=== PATIENT | female | born 1935 | race Caucasian/White ===

== ENCOUNTER 2017-08-10 21:15 | Inpatient (IN) | payer OTHER, MEDICARE ==
[~2017-08-10 21:15] MED LIST: ASPIRIN81 M1 PO; ATORVASTATIN CA20 MG PO; CRESTOR 10MG10 MG PO; ELIQUIS5 MG PO; ENALAPRIL MALEA10 MG PO; FISH OIL CONCEN1 SGL PO; VITAB121000 PO; VITAMIN D31000 IU PO
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
--- NOTE | 2017-08-10 22:05 | RADIOLOGY REPORT ---
EXAMINATION: XR PELVIS CLINICAL INFORMATION: 81-year-old woman with fall and pain. COMPARISON: None TECHNIQUE: AP film of the pelvis along with dedicated AP and crosstable lateral views of the left hip were obtained. FINDINGS: There is no evidence of an acute pelvic fracture. Degenerative changes are seen at the SI joints and pubic symphysis. The right hip remains in normal anatomic alignment. There is a slightly impacted subcapital fracture of the left femoral neck with slight varus angulation of the distal femur. The femoral head remains well-seated in the acetabulum. IMPRESSION: Impacted and slightly angulated subcapital fracture of the left femoral neck.
--- NOTE | 2017-08-10 22:41 | CT SCAN REPORT ---
EXAMINATION: CT HEAD WITHOUT CONTRAST CLINICAL INFORMATION: 81-year-old woman post fall on oral anticoagulation. COMPARISON: 10/05/[address] TECHNIQUE: Contiguous axial imaging was performed from the skull base to vertex without intravenous administration of contrast. DLP: 617 mGy-cm FINDINGS: Moderate chronic microvascular ischemic changes are again seen throughout the supratentorial white matter without obvious interval change. No intracranial mass, hemorrhage, midline shift, or extra-axial collection is appreciated. The ventricles and sulcal spaces are mildly prominent, but stable and probably within the range of normal for the patient's age. The paranasal sinuses are well aerated. IMPRESSION: No acute intracranial pathology.
[2017-08-10 22:55] LABS: ABSOLUTE BASOPHIL COUNT 0 /CUMM (0.0-0.2); ABSOLUTE EOSINOPHIL COUNT 0.2 /CUMM (0.0-0.7); ABSOLUTE GRANULOCYTE CT 4.8 /CUMM (1.4-6.5); ABSOLUTE LYMPH COUNT 1.9 /CUMM (1.2-3.4); ABSOLUTE MONOCYTE COUNT 0.6 /CUMM (0.10-0.60); BASOPHIL % 0.4 % (0.0-2.0); EOSINOPHIL % 2.5 % (0-5); GRANULOCYTE % 64.3 % (42.2-75.2); HEMATOCRIT 40.8 % (37-47); MEAN CORPUSCULAR HGB 30.9 PG (27.0-31.0); MEAN CORPUSCULAR HGB CONC 33.9 G/DL (33.0-37.0); MEAN CORPUSCULAR VOLUME 91.2 FL (81.0-99.0); MEAN PLATELET VOLUME 9.1 FL (7.4-10.4); PLATELET COUNT 173 /CUMM (130-400); RBC DISTRIBUTION WIDTH 13.8 % (11.5-14.5); RED BLOOD CELL CT 4.47 /CUMM (4.20-5.40); WHITE BLOOD CELL COUNT 7.5 /CUMM (4.8-10.8)
[2017-08-10 23:04] LABS: PT 13.3 SEC (9.4-12.5); PTT 29 SEC (25-37)
--- NOTE | 2017-08-10 23:09 | History & Physical ---
Moises Dooley MD,[facility] 08/10/17 7915: General Information and HPI MD Statement: I have seen and personally examined RALPH SAMUELS and documented this H&P. The patient is a 81 year old F who presented with a patient stated chief complaint of [fall]. Source of Information: patient, family Exam Limitations: no limitations History of Present Illness: Patient is 81 F with PMH of HTN, TIA (2014) on statin, afib on eliquise and amiodarone (follows Dr Chapa, s/p ablation in feb [address] Velazquez), IBS, spinal stenosis/spondylosis, endometrial cancer s/p hysterectomy, presented to the ED L side hip pain after a fall. Patient noted that this eveing she was walking in an uneven surface when she lost balance and fell on her L side, she had immediate pain in the Left hip area but tried to take few steps and had sharp pain. She denied any symptoms before the even such as SOB, chest pain, dizziness, palpitation, shakiness or incontinance. She also denied any head trauma or LOC. She also denied any weakness or change in sensation in LE, but reported limited motion of L hip due to pain. No nausea or vomiting, no change in vision. She denied any change in PO intake. Patient was diagnosed to have afib, was taking amiodarone and eliquise and underwent ablation by Dr Velazquez, she noted that she had an appointment with Dr Velazquez tomorrow regarding possible planning to discharge the amiodarone. She also reported 2 episodes of bactruria/UTI last month, first was revealed after she visited Dr Marshall for stress incontinance, she was prescribed NF, but continued to have disuria, she contacted her PCP and was adminsitered Bactrim for 3 days, the last dose to be finished tonight. Patient lives with , independant in acitivies of daily life, denied smoking or using drugs and reported occasional alcohol intake. Allergies/Medications Allergies: Coded Allergies: NO KNOWN ALLERGIES (04/22/14) Home Med list Amiodarone (Cordarone) 200 MG TAB 100 TAB PO EOD AFIB (Reported) Amiodarone HCl 200 MG TABLET 200 TAB PO EOD AFIB (Reported) Apixaban (Eliquis) 5 MG TABLET 1 TAB PO BID AFIB (Reported) Enalapril Maleate 10 MG TABLET 1 TAB PO BID HTN (Reported) Estradiol (Estrace) 0.01 % CREAM.APPL 1 GM VG QW MENOPSUSE (Reported) Pravastatin Sodium 20 MG TABLET 1 TAB PO Tuesday HLD (Reported) Sulfamethoxazole/Trimethoprim (Sulfamethoxazole-Tmp Ds Tablet) 800 MG-160 MG TABLET 1 TAB PO BID UTI (Reported) Past History Travel History Traveled to [place] past 21 day No Medical History Neurological: migraine, TIA EENT: sinusitis Cardiovascular: hypertension, "IRREGULAR HEART BEAT" Respiratory: NONE Gastrointestinal: irritable bowel syndrome Hepatic: NONE Renal: NONE Musculoskeletal: osteoarthritis Psychiatric: NONE Endocrine: NONE Blood Disorders: NONE Cancer(s): SKIN CANCER 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 Exam & Diagnostic Data Last 24 Hrs of Vital Signs/I&O Vital Signs Date Time Temp Pulse Resp B/P B/P Pulse O2 O2 Flow FiO2 Mean Ox Delivery Rate 08/10 2120 98.0 64 16 154/80 98 Room Air Physical Exam General Appearance Alert, Oriented X3, Cooperative, No Acute Distress Skin No Significant Lesion, skin abrasion throughout the body Skin Temp/Moisture Exam: Warm/Dry Sepsis Skin Exam (color): Normal for Ethnicity HEENT Atraumatic, EOMI, pupils reactive mocus dry relatively Neck Supple, No JVD Cardiovascular Regular Rate, Normal S1, Normal S2 Lungs Clear to Auscultation, Normal Air Movement Abdomen Soft, No Tenderness Neurological Normal Speech, Strength at 5/5 X4 Ext, Cranial Nerves 3-12 NL, motion of L hip limited due to pain Extremities No Edema Vascular pulses present Last 24 Hrs of Labs/Larry: Laboratory Tests 08/10/17 2248: Anion Gap 13, Estimated GFR 29 L, BUN/Creatinine Ratio 15.3, Glucose 153 H, Calcium 8.9, Total Bilirubin 0.5, AST 25, ALT 23, Alkaline Phosphatase 63, Troponin I < 0.01, Total Protein 7.3, Albumin 4.3, Globulin 3.0, Albumin/ Globulin Ratio 1.4, PT 13.3 H, INR 1.22 H, APTT 29, CBC w Diff NO MAN DIFF REQ , RBC 4.47, MCV 91.2, MCH 30.9, MCHC 33.9, RDW 13.8, MPV 9.1, Gran % 64.3, Lymphocytes % 25.3, Monocytes % 7.5, Eosinophils % 2.5, Basophils % 0.4, Absolute Granulocytes 4.8, Absolute Lymphocytes 1.9, Absolute Monocytes 0.6, Absolute Eosinophils 0.2, Absolute Basophils 0 Microbiology 08/11 0058 URINE ROUT: Urine Culture - ORD Assessment/Plan Assessment: Patient is 81 F presented to the ED L side hip pain after a fall. most likely mechanical fall PMH: HTN, TIA (2014) on statin, afib on eliquise and amiodarone (follows Dr Chapa, s/p ablation in feb [address] Velazquez), IBS, spinal stenosis/ spondylosis, endometrial cancer s/p hysterectomy, VS, Ph Ex at admission: BP 154/80, RR 64, no fever EKG: NSR Labs at admission: CBC insignificant, Hgb 13.8 BEP Cr 1.3, BUN 19 INR 1.2 UA: pending Imagings at admission: head CT: no acute intracranial pathology Hip/pelvic xray: Impacted and slightly angulated subcapital fracture of the left femoral neck. Patient was admitted to telemetry floor for management of following conditions: Left femoral neck fracture Chronic medical conditions, afib on eliquise SOREN UTI - admit to tele floor - vital signs - gentle hydration - pain control, tynelol, morphin (No Nsaid) - not candidate for surgery tomorrow due to eliquise (need to hold for 2 days) - cardiology consult, Dr chapa - contiue home medications except hold eliquise for now, hold JAMARCUS for SOREN - Ortho consult - PT/OT - complete last dose of bactrim DVT ppx: ALPS, hold eliquise anticipation for surgery heart healthy diet FC As Ranked By This Provider Problem List: 1. Femur fracture, left Core Measures/Misc (11/21) Acute Coronary Syndrome ACS Diagnosis: No Congestive Heart Failure Congestive Heart Failure Diagnosis No Cerebrovascular Accident CVA/TIA Diagnosis: No VTE (View Protocol) VTE Risk Factors Age>40 No Mechanical VTE Prophylaxis d/t N/A MechProphylax Ordered No VTE Pharm Prophylaxis d/t Medical Contraindication (Eliquise held for surgery ) Sepsis (View protocol) Sepsis Present: No If YES complete Sepsis Event Note If YES complete Sepsis Event Note Argelia Jimenez 08/10/17 2337: Core Measures/Misc (11/21) Sepsis (View protocol) If YES complete Sepsis Event Note If YES complete Sepsis Event Note Resident Review Statement Resident Statement: examined this patient, discussed with development intern, agreed with development intern Other Findings: Mrs Samuels is a 81-year-old female with past medical history of hypertension, TIA in 2015 on aspirin and statin, atrial fibrillation on Eliquis, inflammatory bowel syndrome, spinal stenosis/spondylolysis, endometrial cancer status post hysterectomy presented to the emergency department after fall on the left side and left hip pain after the fall. Apparently she had a fall in the driveway and hurt her left side. On presentation her temperature was 98.0, pulse of 64, respiration of 16, blood pressure 154/80, she was saturating 98% on room air. White count of 7.5, H/H of 13.8/40.8, platelet of 170 X-ray hip showed impacted and slightly angulated capital fracture of left femoral neck. CT head did not show any acute intracranial pathology. EKG: showed normal sinus rhythm with poor T-wave progression, Qtc 451. Echo in 2014 - showed EF of 55-60%. Physical exam : She was alert oriented to time place and person, left lower extremity slightly shorter than the right extremity, could wiggle toes of both foot, limited mobility of the left leg especially above knee, CVS S1-S2 present no murmur, RS and entry bilaterally equal, no adventitious sounds, PA : soft, nontender, lower extremity no edema clubbing or cyanosis, pulses palpable bilaterally, slight bruising on the left elbow and mild bruising in the left ankle. Problem list along with assessment and plan. Problem #1 left femoral neck angulated capital fracture. * Patient will perhaps need repair of the left femoral neck fracture. * Orthopedic consult, type and crossmatch, continue to monitor CBCs, BEP, PT, INR. * Please hold Eliquis, last dose of Eliquis was on the morning of 08/11/2017, touch based with surgical PA, need at least 48 hours of holding of Eliquis therefore not anticipating surgery on the a.m. of 08/11/[address] regular diet. * Continue pain management with IV Tylenol, tramadol for moderate pain and IV morphine for severe pain * PT/OT consult. * Patient will need clearance for surgery. * Cardiology consult with Dr Chapa in a.m. in order to obtain clearance. * Risk stratification for Hip Sx : RCRI Score of 1 : Patient does not have any history of ischemic heart disease, congestive heart failure or diabetes, however she does have a history of TIA, she does have mildly elevated creatinine to 1.7 however not greater than 2 mg per DL, therefore 0.9% risk of cardiac , nonfatal IN and nonfatal cardiac arrest. * Further management per orthopedic. #2 history of atrial fibrillation on Eliquis. * Patient was found to have paroxysmal atrial fibrillation, this is when her electronic warfare operator Dr. Velazquez suggested a Holter monitor after which she was found to have atrial fibrillation now status post ablation. * Currently she is in normal sinus rhythm. * We will hold Eliquis in anticipation of hip surgery. * Continue to monitor on cardiac telemetry. * Continue rate control with amiodarone, she alternatively takes 200 and 100 mg of amiodarone. #3 History of hyperlipidemia. * Patient takes pravastatin 20 mg daily. * We will hold the statin for now. #4. CKD Stage 3 with Acute kidney injury. * Current creatinine of 1.7, baseline creatinine was found to be between 1.1 and 1.5 since 2017, she does look dry on physical exam, she was also noted to have a decent urinary tract infection for which she was being treated with Bactrim. * we will hold lisinopril * Continue gentle IV hydration. * Continue to monitor creatinine. * Avoid all nephrotoxic medications. We will hold lisinopril for now. #5 History of recent urinary tract infection. * Patient had recent complain of burning and dysuria as OP after which she went to her PCP. * Urine was found to be positive for infection ,therefore was being treated with Bactrim, she has completed 2 days with 1 more dose remaining. * We will check UA and urine culture, can consider giving 1 more dose of p.o. Bactrim to complete the entire course. * UA clear - no infection. Patient is full code. DVT prophylaxis with ALPS Pain management with IV morphine, tramadol and IV Tylenol. Regular diet. Grzegorz YI, [facility] 08/11/17 0224: Core Measures/Misc (11/21) Sepsis (View protocol) If YES complete Sepsis Event Note If YES complete Sepsis Event Note Attending MD Review Statement Attending Statement Attending MD Statement: examined this patient, discuss w/resident/PA/SPRAYER MACHINE, agreed w/resident/PA/SPRAYER MACHINE, discussed with family, reviewed images, amended to note Attending Assessment/Plan: 81 yo F with h/o TIA (2014), paroxysmal Afib s/p ablation on Eliquis, HTN, CKD stage 3, endometrial cancer s/p SHUN, UTI currently on Bactrim, is brought in status post mechanical fall at home. She denies any prodromal symptoms of lightheadedness, palpitations, chest pain, or dyspnea. No head strike or LOC. She reports left hip pain. Her last dose of eliquis was on 08/10/17 at 9 am. Please note, patient had a LINQ monitor placed in 2014 when she had the TIA, which was able to identify paroxysmal Afib. She was placed on eliquis and amiodarone, recently underwent ablation at [facility] (Feb 2017) by Dr. Velazquez. She denies any h/o CAD, CHF, diabetes. She does have CKD but baseline creatinine is not > 2.0. Vitals stable. Exam: AAO, in no distress, Neck supple, dry mucosa, Chest clear, Heart S1S2 regular, Abd soft, NT, Left hip: no ecchymosis or swelling. Left leg shortened. Peripheral pulses well felt. Labs: CBC nomal, INR 1.22, BUN 26, Creat 1.7 (baseline 1.0-1.2), glucose 153, trop neg. UA clear. CXR: no acute findings. CT head: moderate chronic microvascular ischemic changes, no acute pathology. Left hip/pelvis Xray: impacted and slightly angulated subcapital fracture of the left femoral neck. EKG: sinus rhythm, poor T-wave progression, Qtc 451. Echo (2014): EEF 55-60%, mild to moderate aortic sclerosis. Assessment and plan: 1. Mechanical fall 2. Left femoral neck fracture 3. Paroxysmal Afib on Eliquis 4. History of TIA 5. Essential hypertension 6. SOREN on CKD stage 3 - Admit to Telemetry - Given her h/o Afib, it is prudent to monitor on the Tele floor for about 24 hours post-operatively - Fall precautions - Repeat EKG and troponin in AM - Obtain post-op EKG - Ortho consult - Hold eliquis for 48 hours prior to procedure - Resume amiodarone and pravastatin - Regular diet for now - Pain management with IV tylenol, tramadol and IV morphine as needed - Avoid NSAIDs - Neurovascular checks - Per RCRI, she had 1 risk factor, placing her at Class II risk for perioperative cardiac event - Obtain Cardiology clearance with Dr. Chapa - Ascertain need for repeat Echo per Cardio - Type and crossmatch - IV hydration - Follow renal functions - Hold enalapril for SOREN, resume once renal functions improve - Complete course of Bactrim for UTI while monitoring renal fns - Place Barrett catheter - Eventual PT and STR DVT ppx Alps. Full code.
[2017-08-10] MEDS ORDERED: ESTRACE42.5 GM VG (23:16)
[2017-08-10] MEDS ORDERED: ELIQUIS5 M1 PO (23:16)
[2017-08-10] MEDS ORDERED: ENALAPRIL MALEA10 M1 PO (23:17)
[2017-08-10] MEDS ORDERED: SULFAMETHOXAZO1 EAC1 PO (23:17)
[2017-08-10] MEDS ORDERED: AMIODARONE HCL200 M2 PO (23:19)
[2017-08-10] MEDS ORDERED: AMIODARONE HCL200 M1 PO (23:20)
[2017-08-10] MEDS ORDERED: PRAVASTATIN SOD20 M2 PO (23:21)
--- NOTE | 2017-08-11 01:22 | Cons- Orthopedic ---
Abbi Sue 08/11/17 0115: General Information and HPI Consulting Request Date of Consult: 08/11/17 Requested By: Braden Lantigua MD Reason for Consult: L hip fx sp mechanical fall History of Present Illness: 81F presents to ED for l hip pain s/p mechanical fall at home in her garden. Denies hitting her head, no LOC, no dizziness, no palpitations, no cp, no sob now or at time of fall. Admits to some pain L hip, though no paresthesias. Was supposed to finsih course of BActrim ast night for UTI, and still feels symptomatic (pain w insertion of mercado). No other complaints at this time. Fully independent in ADLs, drives and lives w spouse. PMHx includes AFib on eliquis sp ablation 02/2017, HTN, endometrial ca sp SHUN 2014. Last dose of eliquis 08/10/17 am. Allergies/Medications Allergies: Coded Allergies: NO KNOWN ALLERGIES (04/22/14) Home Med List: Amiodarone (Cordarone) 200 MG TAB 100 TAB PO EOD AFIB (Reported) Amiodarone HCl 200 MG TABLET 200 TAB PO EOD AFIB (Reported) Apixaban (Eliquis) 5 MG TABLET 1 TAB PO BID AFIB (Reported) Enalapril Maleate 10 MG TABLET 1 TAB PO BID HTN (Reported) Estradiol (Estrace) 0.01 % CREAM.APPL 1 GM VG QW MENOPSUSE (Reported) Pravastatin Sodium 20 MG TABLET 1 TAB PO Tuesday HLD (Reported) Sulfamethoxazole/Trimethoprim (Sulfamethoxazole-Tmp Ds Tablet) 800 MG-160 MG TABLET 1 TAB PO BID UTI (Reported) Past History Medical History Neurological: migraine, TIA EENT: sinusitis Cardiovascular: AFIB (sp ablation 02/2017), hypertension Respiratory: NONE Gastrointestinal: irritable bowel syndrome Hepatic: NONE Renal: NONE Musculoskeletal: osteoarthritis Psychiatric: NONE Endocrine: NONE Blood Disorders: NONE Cancer(s): SKIN [employer]OR/Reproductive: Endometrial CA S/P SHUN 2014 Surgical History Pertinent Surgical History: hysterectomy, heart ablation Psychosocial History Where Do You Live? Home Who Do You Live With? spouse Services at Home: None Smoking Status: Never Smoked ETOH Use: denies use Illicit Drug Use: denies illicit drug use Exam & Diagnostic Data Vital Signs and I&O Vital Signs Date Time Temp Pulse Resp B/P B/P Pulse O2 O2 Flow FiO2 Mean Ox Delivery Rate 08/10 2120 98.0 64 16 154/80 98 Room Air Intake & Output 08/11 0000 08/10 1600 08/10 0808/10 0000 08/09 1600 Intake Total Output Total Balance Patient 153 lb Weight Physical Exam: gen- nad card- s1s2 rrr pulm-ctab ext- LLE shortened, gross sensation intact, +dp, gross motor intact, left hipnt, skin closed, no ecchymoses Last 24 Hours of Labs: Laboratory Tests 08/10 2248 Chemistry Sodium (137 - 145 mmol/L) 142 Potassium (3.5 - 5.1 mmol/L) 4.5 Chloride (98 - 107 mmol/L) 104 Carbon Dioxide (22 - 30 mmol/L) 25 Anion Gap (5 - 16) 13 BUN (7 - 17 mg/dL) 26 H Creatinine (0.5 - 1.0 mg/dL) 1.7 H Estimated GFR (>60 ml/min) 29 L BUN/Creatinine Ratio (7 - 25 %) 15.3 Glucose (65 - 99 mg/dL) 153 H Calcium (8.4 - 10.2 mg/dL) 8.9 Total Bilirubin (0.2 - 1.3 mg/dL) 0.5 AST (14 - 36 U/L) 25 ALT (9 - 52 U/L) 23 Alkaline Phosphatase (<127 U/L) 63 Troponin I (< 0.11 ng/ml) < 0.01 Total Protein (6.3 - 8.2 g/dL) 7.3 Albumin (3.5 - 5.0 g/dL) 4.3 Globulin (1.9 - 4.2 gm/dL) 3.0 Albumin/Globulin Ratio (1.1 - 2.2 %) 1.4 Coagulation PT (9.4 - 12.5 SEC) 13.3 H INR (0.90 - 1.19) 1.22 H APTT (25 - 37 SEC) 29 Hematology CBC w Diff NO MAN DIFF REQ WBC (4.8 - 10.8 /CUMM) 7.5 RBC (4.20 - 5.40 /CUMM) 4.47 Hgb (12.0 - 16.0 G/DL) 13.8 Hct (37 - 47 %) 40.8 MCV (81.0 - 99.0 FL) 91.2 MCH (27.0 - 31.0 PG) 30.9 MCHC (33.0 - 37.0 G/DL) 33.9 RDW (11.5 - 14.5 %) 13.8 Plt Count (130 - 400 /CUMM) 173 MPV (7.4 - 10.4 FL) 9.1 Gran % (42.2 - 75.2 %) 64.3 Lymphocytes % (20.5 - 51.1 %) 25.3 Monocytes % (1.7 - 9.3 %) 7.5 Eosinophils % (0 - 5 %) 2.5 Basophils % (0.0 - 2.0 %) 0.4 Absolute Granulocytes (1.4 - 6.5 /CUMM) 4.8 Absolute Lymphocytes (1.2 - 3.4 /CUMM) 1.9 Absolute Monocytes (0.10 - 0.60 /CUMM) 0.6 Absolute Eosinophils (0.0 - 0.7 /CUMM) 0.2 Absolute Basophils (0.0 - 0.2 /CUMM) 0 Imaging Results: SERVICE DATE: 08/10/17 EXAM TYPE: RAD - XRY-AP PELVIS; XRY-HIP 2-3 VIEWS, LEFT EXAMINATION: XR PELVIS CLINICAL INFORMATION: 81-year-old woman with fall and pain. COMPARISON: None TECHNIQUE: AP film of the pelvis along with dedicated AP and crosstable lateral views of the left hip were obtained. FINDINGS: There is no evidence of an acute pelvic fracture. Degenerative changes are seen at the SI joints and pubic symphysis. The right hip remains in normal anatomic alignment. There is a slightly impacted subcapital fracture of the left femoral neck with slight varus angulation of the distal femur. The femoral head remains well-seated in the acetabulum. IMPRESSION: Impacted and slightly angulated subcapital fracture of the left femoral neck. CT Head- negative for acute pathology. see rads report for details Assessment/Plan Assessment/Plan A- 81yoF with left femoral neck fracture sp fall at home, on home eliquis for afib- last dose <24hr ago, otherwise stable. P- hold eliquis prn pain meds OR when medically optimized/cleared. Will need to be at least 48hr after last dose of eliquis. alma Kimball Consult Acknowledgment - Thank you for your consult request. Rehana YIJosé Manuel 08/11/17 0735: Assessment/Plan Consult Acknowledgment - Thank you for your consult request. Attending MD Review Statement Attending Statement Attending Assessment/Plan: Left hip femoral neck fracture. Plan for left hip percutaneous pinning this afternoon. Please keep NPO. Hold anticoagulation, the patient did not have her evening dose of eliquis, percutaneous pinning has a low bleelding risk.
--- NOTE | 2017-08-11 01:25 | Admission Certification ---
Admission Certification Certification Statement - As attending physician, I certify that at the time of - admission, based on clinical presentation, severity of - symptoms, need for further diagnostic testing and - therapeutic interventions, and risk of adverse outcomes - without in-hospital treatment, in my clinical assessment, - this patient requires an acute hospital stay for a minimum - of two nights or longer. I have also considered psychsocial - factors such as support system, advanced age, financial - issues, cognitive issues, and failed out-patient treatments, - past re-admission history, safety of patient, and lack of - compliance as applicable. Specific rationale supporting this admission is: Mechanical fall, subcapital fracture of left femoral neck.
--- NOTE | 2017-08-11 01:53 | RADIOLOGY REPORT ---
EXAMINATION: XR PORTABLE CHEST CLINICAL INFORMATION: Preoperative, rule out pneumonia, effusion COMPARISON: 02/08/2017 TECHNIQUE: Portable frontal view of the chest was obtained. FINDINGS: Implantable quality assurance monitor overlies the lower left chest. There is mild elevation of the right hemidiaphragm. No focal consolidation is seen bilaterally. No evidence of pneumothorax, pleural effusion, or pulmonary edema. Cardiac size is within normal limits. Calcification is present at the aortic arch. Degenerative changes are noted in the spine. IMPRESSION: No acute cardiopulmonary findings.
[2017-08-11 05:30] LABS: ABSOLUTE BASOPHIL COUNT 0 /CUMM (0.0-0.2); ABSOLUTE EOSINOPHIL COUNT 0.1 /CUMM (0.0-0.7); ABSOLUTE GRANULOCYTE CT 7.6 /CUMM (1.4-6.5); ABSOLUTE MONOCYTE COUNT 0.6 /CUMM (0.10-0.60); BASOPHIL % 0.3 % (0.0-2.0); EOSINOPHIL % 0.6 % (0-5); GRANULOCYTE % 81.6 % (42.2-75.2); HEMATOCRIT 37.8 % (37-47); MEAN CORPUSCULAR HGB 30.8 PG (27.0-31.0); MEAN CORPUSCULAR VOLUME 90.6 FL (81.0-99.0); MEAN PLATELET VOLUME 8.9 FL (7.4-10.4); PLATELET COUNT 152 /CUMM (130-400); RBC DISTRIBUTION WIDTH 14.2 % (11.5-14.5); RED BLOOD CELL CT 4.17 /CUMM (4.20-5.40); WHITE BLOOD CELL COUNT 9.3 /CUMM (4.8-10.8)
--- NOTE | 2017-08-11 07:03 | PN- Orthopedic ---
Subjective Subjective: left hip fracture s/p mechanical fall on medical service awaiting cardiac clearance Objective Vital Signs and I&Os Vital Signs Date Time Temp Pulse Resp B/P B/P Pulse O2 O2 Flow FiO2 Mean Ox Delivery Rate 08/11 0518 96.7 61 16 126/59 95 Room Air 08/11 0121 98.7 72 16 130/60 96 Room Air 08/10 2120 98.0 64 16 154/80 98 Room Air Intake & Output 08/11 0800 08/11 0000 08/10 1600 08/10 0800 08/10 0000 08/09 1600 Intake Total Output Total Balance Patient 153 lb Weight Physical Exam: awake alert vss left hip fracture requiring orif for ambulation Assessment/Plan Assessment/Plan left hip fracture afib- currently taking eliquis plan Dr Kimball would liketo take patient to OR this afternoon please keep npo for now aware that patient is on eliquis surgery will require percutaneous pinning which is a smaller incision( no need for 48 hr hold for anticoagulation Core Measures Venous Thromboembolism VTE Risk Factors Age>40 No Mechanical VTE Prophylaxis d/t N/A MechProphylax Ordered No VTE Pharm Prophylaxis d/t Medical Contraindication (Eliquise held for surgery )
--- NOTE | 2017-08-11 07:16 | PN- Housestaff ---
Nelida YI,Anamika 08/11/17 0716: Subjective Follow-up For: left femoral neck angulated capital fracture S/P percutaneous pinning history of atrial fibrillation on Eliquis. SOREN on CKD stage III Tele-Events Since Last Visit: No overnight events Subjective: Patient was seen and examined at bedside, had few questions regarding her surgery, concern about when she would be able to get back to her usual daily activities. She had mild hyperkalemia this morning, was given 500 normal saline cc bolus. Patient was taken for percutaneous pinning of her femoral neck fracture this morning Review of Systems Constitutional: Reports: see HPI. Cardiovascular: Denies: no symptoms. Respiratory: Denies: no symptoms. Gastrointestinal: Denies: no symptoms. Genitourinary: Denies: no symptoms. Musculoskeletal: Reports: joint pain. Objective Last 24 Hrs of Vital Signs/I&O Vital Signs Date Time Temp Pulse Resp B/P B/P Pulse O2 O2 Flow FiO2 Mean Ox Delivery Rate 08/11 0925 98.0 83 18 136/80 98 Room Air Room Air / 0841 98.1 58 18 114/56 06/07 0739 98.1 58 18 114/56 97 Room Air Room Air 06/07 0518 96.7 61 16 126/59 95 Room Air / 0121 98.7 72 16 130/60 96 Room Air 06/06 2120 98.0 64 16 154/80 98 Room Air Intake & Output /07 1600 06/07 0800 06/07 0000 Intake Total 500 Output Total Balance 500 Intake, IV 500 Patient 153 lb Weight Physical Exam General Appearance: Alert, Oriented X3 HEENT: Atraumatic, PERRLA, EOMI, Mucous Membr. moist/pink Cardiovascular: Normal S1, Normal S2 Lungs: Clear to Auscultation Abdomen: Normal Bowel Sounds, Soft Neurological: Normal Speech Extremities: No Clubbing, No Cyanosis, No Edema, NEUROVASCULAR INTACT IN BOTH LE , PULSES INTACT Vascular: Normal Pulses Assessment/Plan Assessment: 81-year-old female with past medical history of hypertension, TIA in 2015 on aspirin and statin, atrial fibrillation on Eliquis, inflammatory bowel syndrome, spinal stenosis/spondylolysis, endometrial cancer status post hysterectomy presented to the emergency department after fall on the left side and left hip pain after the fall. Apparently she had a fall in the driveway and hurt her left side. Patient had RC RI score of 1 due to history of TIA which make her has 0.9% risk of cardiac unknown fatal cardiac arrest, she was cleared by cardiology for the surgery. 1. Mechanical fall 2. Left femoral neck fracture S/P percutanous pinning 3. Paroxysmal Afib on Eliquis 4. History of TIA 5. Essential hypertension 6. SOREN on CKD stage 3 7/. Mild hyperkalemia plan: Continue to monitor on telemetry at least for 24 hours postoperative Fall precautions Tropes and EKG ruled out ACS Will restart oral anticoagulation as soon as possible when approved by surgery Avoid nephrotoxic, continue to hold lisinopril Gentle IV fluid hydration Recheck BUN, creatinine and electrolytes Follow-up on cardiology and orthopedic recommendation PT evaluation appreciated Continue amiodarone and pravastatin Pain management with IV Tylenol, tramadol, morphine as needed Close monitoring of renal function Patient is full code. DVT prophylaxis with ALPS Pain management with IV morphine, tramadol and IV Tylenol. Regular diet. Problem List: 1. Femur fracture, left 2. HTN (hypertension) 3. TIA (transient ischemic attack) 4. SOREN (acute kidney injury) Pain Ratin Pain Location: left hip Pain Goal: Remain pain free Pain Plan: Pathway Tomorrow's Labs & Rationales: cbc bep DreaCindi 08/11/17 1028: Attending MD Review Statement Attending Statement Attending MD Statement: examined this patient, discuss w/resident/PA/HVAC R TECH, agreed w/resident/PA/HVAC R TECH, discussed with family, reviewed EMR data (avail), discussed with nursing, discussed with case mgmt, reviewed images, amended to note Attending Assessment/Plan: Patient with hip fratcure and planned repair to OR. Patient is low risk for surgery. Patient can be taken to OR today, Resume anticoagulation as per orthopedics/cardiology.
--- NOTE | 2017-08-11 09:52 | Cons- Cardiology ---
General Information and HPI Consulting Request Date of Consult: 08/11/17 Requested By: Cindi Shepard MD Reason for Consult: Preoperative clearance Source of Information: patient, family, old records Exam Limitations: no limitations History of Present Illness: The patient is an 81 year old female with a history of HTN, TIA (2014) on statin, afib on eliquis and amiodarone (follows Dr Delgado, s/p ablation in feb [address] Velazquez), IBS, spinal stenosis/spondylosis, endometrial cancer s/p hysterectomy, presented to the ED L side hip pain after a fall. The patient noted that, on the evening of admission, she tripped on an uneven surface when she lost balance and fell on her L side, she had immediate pain in the Left hip area but tried to take few steps and had sharp pain. She denied any symptoms before the even such as SOB, chest pain, dizziness, palpitation, shakiness or incontinance. She also denied any head trauma or LOC. She also denied any weakness or change in sensation in LE, but reported limited motion of L hip due to pain. No nausea or vomiting, no change in vision. She denied any change in PO intake. From a cardiac standpoint, she has been totally stable with no symptoms. She has noted some recent gait instability whcih she attributes to her amiodarone. Allergies/Medications Allergies: Coded Allergies: NO KNOWN ALLERGIES (04/22/14) Home Med List: Acetaminophen (Tylenol Extra Strength) 500 MG TABLET 1 TAB PO TID PRN hip pain Amiodarone (Cordarone) 200 MG TAB 100 TAB PO EOD AFIB (Reported) Amiodarone HCl 200 MG TABLET 200 TAB PO EOD AFIB (Reported) Apixaban (Eliquis) 5 MG TABLET 1 TAB PO BID AFIB (Reported) Enalapril Maleate 10 MG TABLET 1 TAB PO BID HTN (Reported) Estradiol (Estrace) 0.01 % CREAM.APPL 1 GM VG QW MENOPSUSE (Reported) Polyethylene Glycol 3350 (Miralax) 17 GRAM/DOSE POWDER 17 GM PO DAILY PRN constipation . Pravastatin Sodium 20 MG TABLET 1 TAB PO Tuesday HLD (Reported) Sulfamethoxazole/Trimethoprim (Sulfamethoxazole-Tmp Ds Tablet) 800 MG-160 MG TABLET 1 TAB PO BID UTI (Reported) Current Medications: Current Medications Sig/Honey Start time Last Medication Dose Route Stop Time Status Admin Acetaminophen 1,000 MG Q6P PRN 08/11 0100 AC N/A 1 UNIT IV Amiodarone HCl 100 MG Q48 08/12 899 AC PO Amiodarone HCl 200 MG Q48 08/11 0900 AC / PO 0841 Amiodarone HCl 20,000 MG .[EOD] 08/11 010 DC PO Amiodarone HCl 40,000 MG .[EOD] 08/11 010 DC PO Dextrose/Sodium 1,000 ML Q20H 08/12 799 AC 08/11 Chloride IV 08/12 0359 0841 Morphine Sulfate 2 MG Q4P PRN 08/11 08 AC IV Morphine Sulfate 0 .STK-MED ONE 08/11 0128 DC .ROUTE Morphine Sulfate 2 MG Q4P PRN 08/11 0100 DC 08/11 IV 0115 Ondansetron HCl 4 MG ONCE ONE 08/11 0145 DC / IV 08/11 0146 0147 Ondansetron HCl 0 .STK-MED ONE 08/11 0132 DC .ROUTE Pravastatin Sodium 20 MG 08/12 09 AC PO Sodium Chloride 500 ML BOLUS ONE 08/11 929 AC / IV 08/11 1029 0929 Sodium Polystyrene 60 ML ONCE ONE 08/12 799 DC Sulfonate RI 08/11 08 Tramadol HCl 50 MG Q6 PRN 08/11 0100 AC PO Past History Travel History Traveled to [place] past 21 day No Medical History Neurological: migraine, TIA EENT: sinusitis Cardiovascular: AFIB (sp ablation 02/2017), hypertension Respiratory: NONE Gastrointestinal: irritable bowel syndrome Hepatic: NONE Renal: NONE Musculoskeletal: osteoarthritis Psychiatric: NONE Endocrine: NONE Blood Disorders: NONE Cancer(s): SKIN [employer] HEALTHC[employer] 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 Home Who Do You Live With? spouse Services at Home: None Smoking Status: Never Smoked ETOH Use: denies use Illicit Drug Use: denies illicit drug use Exam & Diagnostic Data Vital Signs and I&O Vital Signs Date Time Temp Pulse Resp B/P B/P Pulse O2 O2 Flow FiO2 Mean Ox Delivery Rate 08/11 924 98.0 83 18 136/80 98 Room Air Room Air 06/07 0841 98.1 58 18 114/56 08/11 0739 98.1 58 18 114/56 97 Room Air Room Air 08/11 0518 96.7 61 16 126/59 95 Room Air 08/11 0121 98.7 72 16 130/60 96 Room Air 08/10 2120 98.0 64 16 154/80 98 Room Air Intake & Output 08/11 1600 08/11 0800 08/11 0000 08/10 1600 08/10 0800 08/10 0000 Intake Total 500 Output Total Balance 500 Intake, IV 500 Patient 153 lb Weight Physical Exam: General Appearance: well developed/nourished, alert, awake, oriented Head: normal HEENT: Normal Neck: supple, JVP normal, carotid upstrokes normal bilaterally, no masses or thyromegaly Respiratory: chest non-tender, clear to auscultation and percussion bilaterally Cardiovascular: regular rate/rhythm, normal S1, S2, 1/6 systolic murmur Abdomen: normal bowel sounds, soft, non-tender Extremities: normal inspection, no edema Vascular: Pulses are 2+ and equal bilaterally Neurologic: Grossly normal/nonfocal Labs/Larry Results: Laboratory Tests 08/11 08/11 0515 0500 Chemistry Sodium (137 - 145 mmol/L) 141 Potassium (3.5 - 5.1 mmol/L) 5.3 H Chloride (98 - 107 mmol/L) 107 Carbon Dioxide (22 - 30 mmol/L) 24 Anion Gap (5 - 16) 11 BUN (7 - 17 mg/dL) 29 H Creatinine (0.5 - 1.0 mg/dL) 1.5 H Estimated GFR (>60 ml/min) 33 L BUN/Creatinine Ratio (7 - 25 %) 19.3 Coagulation PT Cancelled INR Cancelled Hematology CBC w Diff NO MAN DIFF REQ WBC (4.8 - 10.8 /CUMM) 9.3 RBC (4.20 - 5.40 /CUMM) 4.17 L Hgb (12.0 - 16.0 G/DL) 12.9 Hct (37 - 47 %) 37.8 MCV (81.0 - 99.0 FL) 90.6 MCH (27.0 - 31.0 PG) 30.8 MCHC (33.0 - 37.0 G/DL) 34.0 RDW (11.5 - 14.5 %) 14.2 Plt Count (130 - 400 /CUMM) 152 MPV (7.4 - 10.4 FL) 8.9 Gran % (42.2 - 75.2 %) 81.6 H Lymphocytes % (20.5 - 51.1 %) 11.1 L Monocytes % (1.7 - 9.3 %) 6.4 Eosinophils % (0 - 5 %) 0.6 Basophils % (0.0 - 2.0 %) 0.3 Absolute Granulocytes (1.4 - 6.5 /CUMM) 7.6 H Absolute Lymphocytes (1.2 - 3.4 /CUMM) 1.0 L Absolute Monocytes (0.10 - 0.60 /CUMM) 0.6 Absolute Eosinophils (0.0 - 0.7 /CUMM) 0.1 Absolute Basophils (0.0 - 0.2 /CUMM) 0 08/11 08/10 0135 2828 Chemistry Sodium (137 - 145 mmol/L) 142 Potassium (3.5 - 5.1 mmol/L) 4.5 Chloride (98 - 107 mmol/L) 104 Carbon Dioxide (22 - 30 mmol/L) 25 Anion Gap (5 - 16) 13 BUN (7 - 17 mg/dL) 26 H Creatinine (0.5 - 1.0 mg/dL) 1.7 H Estimated GFR (>60 ml/min) 29 L BUN/Creatinine Ratio (7 - 25 %) 15.3 Glucose (65 - 99 mg/dL) 153 H Calcium (8.4 - 10.2 mg/dL) 8.9 Total Bilirubin (0.2 - 1.3 mg/dL) 0.5 AST (14 - 36 U/L) 25 ALT (9 - 52 U/L) 23 Alkaline Phosphatase (<127 U/L) 63 Troponin I (< 0.11 ng/ml) < 0.01 Total Protein (6.3 - 8.2 g/dL) 7.3 Albumin (3.5 - 5.0 g/dL) 4.3 Globulin (1.9 - 4.2 gm/dL) 3.0 Albumin/Globulin Ratio (1.1 - 2.2 %) 1.4 Coagulation PT (9.4 - 12.5 SEC) 13.3 H INR (0.90 - 1.19) 1.22 H APTT (25 - 37 SEC) 29 Hematology CBC w Diff NO MAN DIFF REQ WBC (4.8 - 10.8 /CUMM) 7.5 RBC (4.20 - 5.40 /CUMM) 4.47 Hgb (12.0 - 16.0 G/DL) 13.8 Hct (37 - 47 %) 40.8 MCV (81.0 - 99.0 FL) 91.2 MCH (27.0 - 31.0 PG) 30.9 MCHC (33.0 - 37.0 G/DL) 33.9 RDW (11.5 - 14.5 %) 13.8 Plt Count (130 - 400 /CUMM) 173 MPV (7.4 - 10.4 FL) 9.1 Gran % (42.2 - 75.2 %) 64.3 Lymphocytes % (20.5 - 51.1 %) 25.3 Monocytes % (1.7 - 9.3 %) 7.5 Eosinophils % (0 - 5 %) 2.5 Basophils % (0.0 - 2.0 %) 0.4 Absolute Granulocytes (1.4 - 6.5 /CUMM) 4.8 Absolute Lymphocytes (1.2 - 3.4 /CUMM) 1.9 Absolute Monocytes (0.10 - 0.60 /CUMM) 0.6 Absolute Eosinophils (0.0 - 0.7 /CUMM) 0.2 Absolute Basophils (0.0 - 0.2 /CUMM) 0 Urines Urinalysis LIGHT H Urine Color (YEL,AMB,STR) YEL Urine Clarity (CLEAR) HAZY H Urine pH (5.0 - 8.0) 6.0 Ur Specific [place] (1.001 - 1.035) 1.025 Urine Protein (NEG,<30 MG/DL) NEG Urine Ketones (NEG) NEG Urine Nitrite (NEG) NEG Urine Bilirubin (NEG) NEG Urine Urobilinogen (0.1 - 1.0 EU/dl) 1.0 Ur Leukocyte Esterase (NEG) NEG Ur Microscopic SEDIMENT EXAMINED Urine RBC (0 - 5 /HPF) 3-5 Urine WBC (0 - 2 /HPF) RARE Ur Epithelial Cells (NONE,FEW) MOD H Urine Bacteria (NEG/NONE) RARE H Urine Mucus (FEW,NONE) FEW Urine Hemoglobin (NEG) TRACE-INTACT Urine Glucose (N MG/DL) NEG 08/11 2211 Urines Urine Color Cancelled Urine Clarity Cancelled Urine pH Cancelled Ur Specific [place] Cancelled Urine Protein Cancelled Urine Ketones Cancelled Urine Nitrite Cancelled Urine Bilirubin Cancelled Urine Urobilinogen Cancelled Ur Leukocyte Esterase Cancelled Ur Microscopic Cancelled Urine Hemoglobin Cancelled Urine Glucose Cancelled Assessment/Plan Assessment/Plan Assessment: 1. Left subcapital hip fracture 2. Atrial fibrillation, status post ablation 3. Mild hyperkalemia 4. History of hypertension 5. Acute renal insufficiency Recommendations: -Hold anticoagulation pending surgical intervention for hip fracture -From a cardiac perspective, the patient is stable and cleared for the upcoming procedure -The patient should be kept on 1 North telemetry monitoring postoperatively -Restart oral anticoagulation as soon as possible postoperatively -In view of the patient's mild acute renal insufficiency and mild hyperkalemia, I would hydrate the patient with 500 mL of normal saline prior to the procedure. Recheck BUN, creatinine, lites at that time. For now, I would avoid Kayexalate if possible. Consult Acknowledgment - Thank you for your consult request.
--- NOTE | 2017-08-11 10:56 | Operative Report ---
Operative/Inv Procedure Report Surgery Date: 08/11/17 Name of Procedure: Left hip percutaneous pinning Pre-Operative Diagnosis: Left hip femoral neck fracture Post-Operative Diagnosis: Left hip femoral neck fracture Estimated Blood Loss: less than 50ml Surgeon/Cutter Banana Room: Garland Fisher Anesthesia: general endotracheal tube Complications: None Condition: Stable to PACU Operative Indication: This is an 81-year-old female who had a fall and sustained a left hip femoral neck fracture. Risks and benefits of the procedure were discussed with the patient at length. Risks include but are not limited to nerve damage, muscle damage, infection, blood loss, blood clots, pulmonary embolus, and even . The patient agreed to the above risks and elected to proceed with surgery. Operative/Procedure Note Note: The patient was placed supine on the operating room table. Anesthesia was induced by the anesthesia team. The patient received IV antibiotics prior to incision. A timeout was performed prior to incision. The site marking was visualized prior to incision. The patient was positioned on the fracture table with the injured extremity in a well-padded traction boot. The contralateral lower extremity was placed in flexion and abduction in a well-padded leg pittman. Traction was applied to the injured extremity and the fracture was reduced under x-ray guidance. The lower extremitiy was prepped and draped in the normal sterile fashion. An incision was made longitudinally overlying the greater trochanter. The IT band was incised as well. An elevator was used to reflect the vastus lateralis fascia. 3 pins were placed in an inverted triangle fashion. X-rays were taken to ensure that the femoral head was not pierced. These were measured. The lateral cortices were drilled. An 85 mm x 6.5 mm partially threaded screw was placed inferiorly. An 85 mm screw was placed anteriorly. An 80 mm screw was placed posteriorly. This served to reduce the fracture quite well. X-rays were taken to ensure adequate placement. All wounds were copiously irrigated. The fascia was closed with #1 Vicryl suture in a simple interrupted fashion. The skin was closed with 2-0 Vicryl suture and ashley. A dry sterile dressing was placed and patient was transferred to PACU in stable condition.
--- NOTE | 2017-08-11 13:25 | RADIOLOGY REPORT ---
EXAMINATION: CR LEFT HIP/INTRAOPERATIVE FLUOROSCOPY CLINICAL INDICATION: Left hip pinning. COMPARISON: Left hip films dated 08/10/2017. TECHNIQUE/FINDINGS: Fluoroscopic equipment was dedicated to the operating room for the performance of an intraoperative procedure. Several (3) spot films were acquired and are archived in PACS. Please refer to operative notes for procedural detail. FLUOROSCOPY TIME: 1 minute 14 seconds. IMPRESSION: Administrative dictation for intraoperative fluoroscopy and image archiving in PACS. Please refer to operative notes for details.
--- NOTE | 2017-08-11 17:33 | PN- Orthopedic ---
Subjective Subjective: Patient doing well since arriving to the floor. Pain well controlled. Has not been oob yet and prefers to try tomorrow with PT. Denies any other issues or complaints. No other concerns per nursing. Objective Vital Signs and I&Os Vital Signs Date Time Temp Pulse Resp B/P B/P Pulse O2 O2 Flow FiO2 Mean Ox Delivery Rate 08/11 1300 Nasal 2.0L Cannula 08/11 0925 98.0 83 18 136/80 98 Room Air Room Air 08/11 0841 98.1 58 18 114/56 08/11 0739 98.1 58 18 114/56 97 Room Air Room Air 08/11 0518 96.7 61 16 126/59 95 Room Air 08/11 0121 98.7 72 16 130/60 96 Room Air 08/10 2120 98.0 64 16 154/80 98 Room Air Intake & Output / 1600 07 0800 /07 0000 / 1600 08/10 0800 /06 0000 Intake Total 800 Output Total Balance 800 Intake, IV 500 Intake, Oral 300 Patient 153 lb Weight Physical Exam: General: A, A, NAD Extremities: Left Hip foam tape in place, no surrounding skin edema, erythema or ecchymosis Neurovascular: Intact b/l lower extremities Assessment/Plan Assessment/Plan This is an 81 yo female POD#0 from Left hip percutaneous pinning GI/DVT Px PRN analgesics/antiemetics WBAT/PT Dsg chg POD#2 Regular diet Eliquis tomorrow Will follow & d/w Dr. Kimball Problem List: 1. Femur fracture, left 2. Status post-operative repair of hip fracture Core Measures Venous Thromboembolism VTE Risk Factors Age>40 No Mechanical VTE Prophylaxis d/t N/A MechProphylax Ordered No VTE Pharm Prophylaxis d/t Medical Contraindication (Eliquise held for surgery )
[2017-08-11 22:29] VITALS: BP 116/64
[2017-08-12 06:33] VITALS: BP 104/62
--- NOTE | 2017-08-12 07:08 | PN- Housestaff ---
See Addendum Nelida YI,Anamika 08/12/17 0708: Subjective Follow-up For: left femoral neck angulated capital fracture S/P percutaneous pinning history of atrial fibrillation on Eliquis. SOREN on CKD stage III Tele-Events Since Last Visit: No overnight events, normal sinus rhythm Subjective: pt was seen and examined at bed side, denies any c/o , will repeat hip xray today, Review of Systems Constitutional: Denies: no symptoms. Cardiovascular: Denies: no symptoms. Respiratory: Denies: no symptoms. Gastrointestinal: Denies: no symptoms. Genitourinary: Denies: no symptoms. Musculoskeletal: Denies: no symptoms. Objective Last 24 Hrs of Vital Signs/I&O Vital Signs Date Time Temp Pulse Resp B/P B/P Pulse O2 O2 Flow FiO2 Mean Ox Delivery Rate 08/12 0633 97.2 52 18 104/62 96 Room Air 08/11 2229 97.8 70 18 116/64 97 Room Air 08/11 1600 97 Nasal 1.0L Cannula 08/11 1300 Nasal 2.0L Cannula Intake & Output 08/12 1600 08 0800 06/ 0000 Intake Total 640 850 Output Total 900 Balance 640 -50 Intake, IV 400 500 Intake, Oral 240 350 Number 0 0 Bowel Movements Output, Urine 900 Physical Exam General Appearance: Alert, Oriented X3, Cooperative, No Acute Distress HEENT: Atraumatic, PERRLA, EOMI, Mucous Membr. moist/pink Neck: Supple, No JVD Cardiovascular: Normal S1, Normal S2, No Murmurs Lungs: Clear to Auscultation Abdomen: Normal Bowel Sounds, Soft, No Tenderness Neurological: Normal Speech, Sensation Intact, Cranial Nerves 3-12 NL Extremities: No Clubbing, No Cyanosis, No Edema Assessment/Plan Assessment: 81-year-old female with past medical history of hypertension, TIA in 2015 on aspirin and statin, atrial fibrillation on Eliquis, inflammatory bowel syndrome, spinal stenosis/spondylolysis, endometrial cancer status post hysterectomy presented to the emergency department after fall on the left side and left hip pain after the fall. Apparently she had a fall in the driveway and hurt her left side. Patient had RC RI score of 1 due to history of TIA which make her has 0.9% risk of cardiac unknown fatal cardiac arrest, she was cleared by cardiology for the surgery. 1. Mechanical fall 2. Left femoral neck fracture S/P percutanous pinning day 2 3. Paroxysmal Afib on Eliquis status post ablation 4. History of TIA 5. Essential hypertension 6. SOREN on CKD stage 3 7/. Mild hyperkalemia plan: Continue to monitor on telemetry at least for 24 hours postoperative Fall precautions Tropes and EKG ruled out ACS Continue oral anticoagulation as soon as possible when approved by surgery Avoid nephrotoxic, continue to hold lisinopril DC Barrett Recheck BUN, creatinine and electrolytes Follow-up on cardiology and orthopedic recommendation PT evaluation appreciated DC amiodarone Continue pravastatin Pain management with IV Tylenol, tramadol, morphine as needed Close monitoring of renal function Patient is full code. DVT prophylaxis with ALPS Pain management with IV morphine, tramadol and IV Tylenol. Regular diet. Problem List: 1. Status post-operative repair of hip fracture 2. SOREN (acute kidney injury) Pain Ratin Pain Location: left hip Pain Goal: Remain pain free Pain Plan: pathway Tomorrow's Labs & Rationales: N/A Cindi Shepard 08/12/17 1032: Attending MD Review Statement Attending Statement Attending MD Statement: examined this patient, discuss w/resident/PA/TREAD TUBER MACHINE OPERATOR, agreed w/resident/PA/TREAD TUBER MACHINE OPERATOR, discussed with family, reviewed EMR data (avail), discussed with nursing, discussed with case mgmt, reviewed images, amended to note Attending Assessment/Plan: Patient with hip fracture s/p planned repair to OR. Resume anticoagulation as per orthopedics/cardiology. PT evaluation and planned discharge to [facility].
--- NOTE | 2017-08-12 07:15 | PN- Orthopedic ---
Surgical Brief Attending Note Brief Attending Note: Resting comfortably AVSS LLE - dressing c/d/i +EHL/FHL A/P - POD 1 s/p L hip perc pinning WBAT PT resume anticoagulation Needs left hip xrays today
[2017-08-12 07:28] LABS: ABSOLUTE BASOPHIL COUNT 0 /CUMM (0.0-0.2); ABSOLUTE EOSINOPHIL COUNT 0 /CUMM (0.0-0.7); ABSOLUTE GRANULOCYTE CT 9.6 /CUMM (1.4-6.5); ABSOLUTE LYMPH COUNT 0.7 /CUMM (1.2-3.4); ABSOLUTE MONOCYTE COUNT 0.5 /CUMM (0.10-0.60); BASOPHIL % 0.1 % (0.0-2.0); EOSINOPHIL % 0.1 % (0-5); MEAN CORPUSCULAR HGB 31.1 PG (27.0-31.0); MEAN CORPUSCULAR VOLUME 91.4 FL (81.0-99.0); MEAN PLATELET VOLUME 9.5 FL (7.4-10.4); PLATELET COUNT 140 /CUMM (130-400); RBC DISTRIBUTION WIDTH 13.6 % (11.5-14.5); RED BLOOD CELL CT 3.61 /CUMM (4.20-5.40); WHITE BLOOD CELL COUNT 10.8 /CUMM (4.8-10.8)
--- NOTE | 2017-08-12 08:22 | Discharge Summary ---
Visit Information Visit Dates Admission Date: 08/10/17 Discharge Date: 08/13/17 Hospital Course Course Attending Physician: Cindi Shepard MD Primary Care Physician: Ezequiel Bone MD Hospital Course: 81-year-old female with past medical history of hypertension, TIA in 2015 on aspirin and statin, atrial fibrillation on Eliquis, inflammatory bowel syndrome, spinal stenosis/spondylolysis, endometrial cancer status post hysterectomy presented to the emergency department after fall on the left side and left hip pain after the fall. Apparently she had a fall in the driveway and hurt her left side. Patient had RC RI score of 1 due to history of TIA which make her has 0.9% risk of cardiac unknown fatal cardiac arrest, she was cleared by cardiology for the surgery. She was admitted to telemetry for treatment of the following conditions # Left femoral neck fracture due to Mechanical fall: patient was found to have RCRI risk of 1 which potentially at 0.9% risk of cardiac and other noncardiac causes of this, she was cleared by cardiology for the surgery. She got percutaneous pinning of her left hip. Physical therapy recommended that the patient to be discharged home with home physical therapy # Paroxysmal Afib on Eliquis. Eliquis was only started before the surgery and was restarted after the patient had the patient had the operation according to surgery recommendation # Essential hypertension- contolled , she was treated with her home meds except Lisinopril which was held for SOREN # SOREN on CKD stage 3: most likely due to dehydration, slowly improved. # Mild hyperkalemia- improved Patient is full code. DVT prophylaxis with ALPS Pain management with IV morphine, tramadol and IV Tylenol. Regular diet. Allergies: Coded Allergies: adhesive tape (UNKNOWN 08/13/17) Disposition Summary Disposition Principal Diagnosis: left femoral neck angulated capital fracture Additional Diagnosis: Paroxysmal Afib on Eliquis Discharge Disposition: home health services Discharge Instructions General Discharge Information Code Status: Full Code Patient's Diet: Regular Patient's Activity: As tolerated Follow-Up Instructions/Appts: 1please follow-up with your PCP in 1 week of discharge 2please follow-up with orthopedic in 1 week of discharge Medications at Discharge Discharge Medications: Stop taking the following medications: Sulfamethoxazole/Trimethoprim (Sulfamethoxazole-Tmp Ds Tablet) 800 MG-160 MG TABLET ORAL TWICE DAILY Qty = 6 Amiodarone HCl (Amiodarone HCl) 200 MG TABLET ORAL Every other day Qty = 68 Amiodarone (Cordarone) 200 MG TAB ORAL Every other day Continue taking these medications: Estradiol (Estrace) 0.01 % CREAM.APPL 1 Gram VAGINAL Once a Week Qty = 42 Comments: DID NOT RECIEVE IN HOSPITAL Apixaban (Eliquis) 5 MG TABLET 1 Tablet ORAL TWICE DAILY Qty = 60 Comments: Last Taken: 08/13/17 Time: 9 AM Enalapril Maleate (Enalapril Maleate) 10 MG TABLET 1 Tablet ORAL TWICE DAILY Qty = 60 Comments: DID NOT RECIEVE IN HOSPITAL Pravastatin Sodium (Pravastatin Sodium) 20 MG TABLET 1 Tablet ORAL TUESDAY, TUESDAY AND TUESDAY Qty = 30 Comments: Last Taken: 08/12/16 Time: 5 PM Start taking the following new medications: Polyethylene Glycol 3350 (Miralax) 17 GRAM/DOSE POWDER 17 Gram ORAL DAILY as needed for constipation Qty = 30 No Refills Instructions: . Comments: Last Taken: 08/13/17 Time: 9 AM Acetaminophen (Tylenol Extra Strength) 500 MG TABLET 1 Tablet ORAL THREE TIMES DAILY as needed for hip pain Qty = 30 No Refills Comments: DID NOT RECIEVE Copies To: Lizandro YI,Ezequiel Lorenzo
--- NOTE | 2017-08-12 08:22 | Patient Discharge Instructions ---
Discharge Instructions General Discharge Information You were seen/treated for: Left femur fracture status post percutaneous pinning You had these procedures: percutanous pinning of femoral neck fracture Special Instructions: 1please follow-up with your PCP in 1 week of discharge 2please follow-up with orthopedic in 2 weeks of discharge 3-please follow up with cardiology after discharge Diet Continue normal diet: No Recommended Diet: Heart Healthy Acute Coronary Syndrome Inclusion Criteria At DC or during hospital stay patient has or had the following: ACS DIAGNOSIS No Discharge Core Measures Meds if any: Prescribed or Continued at Discharge Meds if any: NOT Prescribed or Continued at Discharge Congestive Heart Failure Inclusion Criteria At DC or during hospital stay patient has or had the following: CHF DIAGNOSIS No Discharge Core Measures Meds if any: Prescribed or Continued at Discharge Meds if any: NOT Prescribed or Continued at Discharge Cerebrovascular accident Inclusion Criteria At DC or during hospital stay patient has or had the following: CVA/TIA Diagnosis No Discharge Core Measures Meds if any: Prescribed or Continued at Discharge Meds if any: NOT Prescribed or Continued at Discharge Venous thromboembolism Inclusion Criteria VTE Diagnosis No VTE Type NONE VTE Confirmed by (Test) NONE Discharge Core Measures - Per Current guidelines, there needs to be overlap - treatment for the first 5 days of Warfarin therapy. - If discharged on Warfarin prior to 5 days of - overlap therapy, the patient will need to be - assessed for post discharge needs including - *Post discharge parental anticoagulation - *Warfarin and/or parental anticoagulation education - *Follow up date to check INR post discharge At least 5 days overlap therapy as Inpatient No Meds if any: Prescribed or Continued at Discharge Note: Overlap Therapy is Warfarin and Anticoagulant Meds if any: NOT Prescribed or Continued at Discharge
[2017-08-12] MEDS ORDERED: MIRALAX119 GM PO ×2 (09:47→09:56)
[2017-08-12] MEDS ORDERED: TYLENOL EXTRA500 M2 PO (09:55)
--- NOTE | 2017-08-12 10:08 | RADIOLOGY REPORT ---
EXAMINATION: XR HIP, LEFT CLINICAL INFORMATION: Status post left hip internal fixation COMPARISON: X-ray left hip dated 08/11/2017 TECHNIQUE: Two views of the left hip. FINDINGS: Postoperative left hip with 3 metallic pins transfixing left femoral neck fracture. Improved alignment compared to preoperative x-rays.. Air in the soft tissues compatible with recent postoperative change. Surgical skin ashley overlying the lateral aspect . IMPRESSION: Recent postoperative changes. No acute osseous abnormality.
[2017-08-12 14:26] VITALS: BP 120/58
--- NOTE | 2017-08-12 14:40 | PN- Cardiology ---
Subjective Subjective: Stable post op Objective Vital Signs and I&Os Vital Signs Date Time Temp Pulse Resp B/P B/P Pulse O2 O2 Flow FiO2 Mean Ox Delivery Rate 08/12 1426 97.9 58 18 120/58 97 Room Air 08/12 0952 Room Air 1.0L 08/12 0633 97.2 52 18 104/62 96 Room Air 08/11 2229 97.8 70 18 116/64 97 Room Air 08/11 1600 97 Nasal 1.0L Cannula Intake & Output 08/12 0000 08/11 1600 08/11 0000 Intake Total 640 850 900 Output Total 900 Balance 640 -50 900 Intake, IV 400 500 600 Intake, Oral 240 350 300 Number 0 0 Bowel Movements Output, Urine 900 Patient 153 lb Weight Physical Exam: General Appearance: well developed/nourished, alert, awake, oriented Head: normal HEENT: Normal Neck: supple, JVP normal, carotid upstrokes normal bilaterally, no masses or thyromegaly Respiratory: chest non-tender, clear to auscultation and percussion bilaterally Cardiovascular: regular rate/rhythm, normal S1, S2, 1/6 systolic murmur Abdomen: normal bowel sounds, soft, non-tender Extremities: normal inspection, no edema Vascular: Pulses are 2+ and equal bilaterally Neurologic: Grossly normal/nonfocal Current Medications: Current Medications Sig/Honey Start time Last Medication Dose Route Stop Time Status Admin Acetaminophen 1,000 MG Q6P PRN 08/11 1315 AC 08/11 N/A 1 UNIT IV 1736 Amiodarone HCl 200 MG Q48 08/13 899 AC PO Amiodarone HCl 100 MG Q48 08/12 899 DC PO Amiodarone HCl 100 MG Q48 08/12 899 AC PO Apixaban 5 MG BID 08/12 899 AC 08/12 PO 0828 Cefazolin Sodium 2 GM IQ8 08/11 1600 DC 08/12 N/A 1 UNIT IV 08/12 0029 0037 Melatonin 5 MG AT BEDTIME 08/12 0300 AC 08/12 PO 0315 Melatonin 5 MG AT BEDTIME 08/11 2100 AC 08/11 PO 2125 Morphine Sulfate 2 MG Q4P PRN 08/11 1315 AC IV Polyethylene Glycol 17 GM DAILY 08/12 944 AC PO Polyethylene Glycol 17 GM DAILY 08/12 914 AC 08/12 PO 1139 Pravastatin Sodium 20 MG MoWeFr@1700 08/12 1700 AC PO Pravastatin Sodium 20 MG 08/12 0900 DC PO Senna/Docusate Sodium 2 TAB DAILY NEEDED PRN 08/12 0945 AC PO Tramadol HCl 50 MG Q6P PRN 08/11 1315 AC 08/12 PO 1429 Results Last 48 Hrs of Labs/Mics: Laboratory Tests 08/12/17 0604: Anion Gap 9, Estimated GFR 43 L, BUN/Creatinine Ratio 15.8, CBC w Diff NO MAN DIFF REQ, RBC 3.61 L, MCV 91.4, MCH 31.1 H, MCHC 34.0, RDW 13.6, MPV 9.5, Gran % 89.0 H, Lymphocytes % 6.3 L, Monocytes % 4.5, Eosinophils % 0.1, Basophils % 0.1, Absolute Granulocytes 9.6 H, Absolute Lymphocytes 0.7 L, Absolute Monocytes 0.5, Absolute Eosinophils 0, Absolute Basophils 0 08/11/17 1419: Anion Gap 10, Estimated GFR 39 L, BUN/Creatinine Ratio 16.9 08/11/17 0515: Anion Gap 11, Estimated GFR 33 L, BUN/Creatinine Ratio 19.3, CBC w Diff NO MAN DIFF REQ, RBC 4.17 L, MCV 90.6, MCH 30.8, MCHC 34.0, RDW 14.2, MPV 8.9, Gran % 81.6 H, Lymphocytes % 11.1 L, Monocytes % 6.4, Eosinophils % 0.6, Basophils % 0.3, Absolute Granulocytes 7.6 H, Absolute Lymphocytes 1.0 L, Absolute Monocytes 0.6, Absolute Eosinophils 0.1, Absolute Basophils 0 08/11/17 0500: PT Cancelled, INR Cancelled 08/11/17 0135: Urinalysis LIGHT H, Urine Color YEL, Urine Clarity HAZY H, Urine pH 6.0, Ur Specific [place] 1.025, Urine Protein NEG, Urine Ketones NEG, Urine Nitrite NEG, Urine Bilirubin NEG, Urine Urobilinogen 1.0, Ur Leukocyte Esterase NEG, Ur Microscopic SEDIMENT EXAMINED, Urine RBC 3-5, Urine WBC RARE, Ur Epithelial Cells MOD H, Urine Bacteria RARE H, Urine Mucus FEW, Urine Hemoglobin TRACE- INTACT, Urine Glucose NEG 08/10/17 2248: Anion Gap 13, Estimated GFR 29 L, BUN/Creatinine Ratio 15.3, Glucose 153 H, Calcium 8.9, Total Bilirubin 0.5, AST 25, ALT 23, Alkaline Phosphatase 63, Troponin I < 0.01, Total Protein 7.3, Albumin 4.3, Globulin 3.0, Albumin/ Globulin Ratio 1.4, PT 13.3 H, INR 1.22 H, APTT 29, CBC w Diff NO MAN DIFF REQ , RBC 4.47, MCV 91.2, MCH 30.9, MCHC 33.9, RDW 13.8, MPV 9.1, Gran % 64.3, Lymphocytes % 25.3, Monocytes % 7.5, Eosinophils % 2.5, Basophils % 0.4, Absolute Granulocytes 4.8, Absolute Lymphocytes 1.9, Absolute Monocytes 0.6, Absolute Eosinophils 0.2, Absolute Basophils 0 08/10/17 2212: Urine Color Cancelled, Urine Clarity Cancelled, Urine pH Cancelled, Ur Specific [place] Cancelled, Urine Protein Cancelled, Urine Ketones Cancelled, Urine Nitrite Cancelled, Urine Bilirubin Cancelled, Urine Urobilinogen Cancelled, Ur Leukocyte Esterase Cancelled, Ur Microscopic Cancelled, Urine Hemoglobin Cancelled, Urine Glucose Cancelled Assessment/Plan Assessment/Plan Assessment: 1. Left subcapital hip fracture 2. Atrial fibrillation, status post ablation 3. Mild hyperkalemia 4. History of hypertension 5. Acute renal insufficiency Recommendations: -Hold anticoagulation pending surgical intervention for hip fracture -From a cardiac perspective, the patient is stable post operatively -The patient should be kept on 1 [place] telemetry monitoring postoperatively -Restart oral anticoagulation as soon as possible postoperatively -I spoke with Dr. Velazquez and the patient may discontinue her amiodarone. Continue telemetry? Yes
[2017-08-12 21:34] VITALS: BP 118/68
[2017-08-13 06:45] VITALS: BP 130/70
--- NOTE | 2017-08-13 08:40 | PN- Housestaff ---
Nelida YI,Anamika 08/13/17 0840: Subjective Follow-up For: left femoral neck angulated capital fracture S/P percutaneous pinning history of atrial fibrillation on Eliquis. SOREN on CKD stage III Tele-Events Since Last Visit: No overnight events, normal sinus rhythm Subjective: She was seen and examined at bedside, she continues to complain of mild hip pain , she was able to work with physical therapy who recommended home physical therapy, she developed mild rash because of the monitor pads for which she was given Silvadene cream Review of Systems Constitutional: Reports: see HPI. Objective Last 24 Hrs of Vital Signs/I&O Vital Signs Date Time Temp Pulse Resp B/P B/P Pulse O2 O2 Flow FiO2 Mean Ox Delivery Rate 08/13 0645 97.9 52 18 130/70 95 Room Air 08/12 2134 98.2 59 18 118/68 96 Room Air 08/12 1426 97.9 58 18 120/58 97 Room Air Intake & Output 08/13 1600 08/13 0800 08/13 0000 Intake Total 200 350 Output Total Balance 200 350 Intake, Oral 200 350 Physical Exam General Appearance: Alert, Oriented X3, Cooperative, No Acute Distress HEENT: Atraumatic, PERRLA Cardiovascular: Normal S1, Normal S2, No Murmurs Lungs: Normal Air Movement Abdomen: Normal Bowel Sounds, Soft Extremities: No Clubbing, No Cyanosis, No Edema Assessment/Plan Assessment: 81-year-old female with past medical history of hypertension, TIA in 2015 on aspirin and statin, atrial fibrillation on Eliquis, inflammatory bowel syndrome, spinal stenosis/spondylolysis, endometrial cancer status post hysterectomy presented to the emergency department after fall on the left side and left hip pain after the fall. Apparently she had a fall in the driveway and hurt her left side. Patient had RC RI score of 1 due to history of TIA which make her has 0.9% risk of cardiac unknown fatal cardiac arrest, she was cleared by cardiology for the surgery. 1. Mechanical fall 2. Left femoral neck fracture S/P percutanous pinning day 2 3. Paroxysmal Afib status post ablation on Eliquis 4. History of TIA 5. Essential hypertension 6. SOREN on CKD stage 3 7/. Mild hyperkalemia plan: Continue to monitor on telemetry Fall precautions Tropes and EKG ruled out ACS Continue Eliquis Avoid nephrotoxic, continue to hold lisinopril Recheck BUN, creatinine and electrolytes Follow-up on cardiology and orthopedic recommendation PT evaluation appreciated Continue pravastatin Pain management with IV Tylenol, tramadol, morphine as needed Close monitoring of renal function pt is stable for DC home with PT, she need to follow-up with Dr. somers in 2 weeks Patient is full code. DVT prophylaxis with ALPS Pain management with IV morphine, tramadol and IV Tylenol. Regular diet. Problem List: 1. Status post-operative repair of hip fracture 2. SOREN (acute kidney injury) 3. Femur fracture, left Pain Ratin Pain Location: N/A Pain Goal: Remain pain free Pain Plan: Pathway Tomorrow's Labs & Rationales: N/A Estefany Felton MD 08/13/17 1501: Attending MD Review Statement Attending Statement Attending MD Statement: examined this patient, discuss w/resident/PA/SALES ATTENDANT BUILDING MATERIALS, agreed w/resident/PA/SALES ATTENDANT BUILDING MATERIALS, reviewed EMR data (avail) Attending Assessment/Plan: Patient doing well, pain controlled, restarted on Eliquis, stable for discharge home. See discharge summary for full details.
--- NOTE | 2017-08-13 10:22 | PN- Orthopedic ---
Subjective Subjective: feeling well, minimal pain, oob and on stiars yesterday w pt- cleared for [facility] discharge today. no paresthesias, no cp/sob/n/v Objective Vital Signs and I&Os Vital Signs Date Time Temp Pulse Resp B/P B/P Pulse O2 O2 Flow FiO2 Mean Ox Delivery Rate 08/13 0645 97.9 52 18 130/70 95 Room Air 08/12 2134 98.2 59 18 118/68 96 Room Air 08/12 1426 97.9 58 18 120/58 97 Room Air Intake & Output 08/13 1600 08/13 0800 08/13 0000 08/12 1600 08/12 0800 08/12 0000 Intake Total 200 350 600 640 850 Output Total 300 900 Balance 200 350 300 640 -50 Intake, IV 400 500 Intake, Oral 200 350 600 240 350 Number 0 0 Bowel Movements Output, Urine 300 900 Physical Exam: gen- nad card-s1s2 rrr pulm- ctab ext- left hip dressing cdi- removed. incision closed w ashley, no purulence, no active bleeding, minimal dried serosang at wound. no erythema, mild edema, mild dependent ecchymosis. nontender. calves soft nt bl, gross sensation intact bl, gross dorsi/plantar flexion intact bl, +pt/dp bl Results Last 48 Hours of Labs: Laboratory Tests 08/12 08/11 0604 1419 Chemistry Sodium (137 - 145 mmol/L) 139 140 Potassium (3.5 - 5.1 mmol/L) 4.8 4.6 Chloride (98 - 107 mmol/L) 108 H 106 Carbon Dioxide (22 - 30 mmol/L) 22 23 Anion Gap (5 - 16) 9 10 BUN (7 - 17 mg/dL) 19 H 22 H Creatinine (0.5 - 1.0 mg/dL) 1.2 H 1.3 H Estimated GFR (>60 ml/min) 43 L 39 L BUN/Creatinine Ratio (7 - 25 %) 15.8 16.9 Hematology CBC w Diff NO MAN DIFF REQ WBC (4.8 - 10.8 /CUMM) 10.8 RBC (4.20 - 5.40 /CUMM) 3.61 L Hgb (12.0 - 16.0 G/DL) 11.2 L Hct (37 - 47 %) 33.0 L MCV (81.0 - 99.0 FL) 91.4 MCH (27.0 - 31.0 PG) 31.1 H MCHC (33.0 - 37.0 G/DL) 34.0 RDW (11.5 - 14.5 %) 13.6 Plt Count (130 - 400 /CUMM) 140 MPV (7.4 - 10.4 FL) 9.5 Gran % (42.2 - 75.2 %) 89.0 H Lymphocytes % (20.5 - 51.1 %) 6.3 L Monocytes % (1.7 - 9.3 %) 4.5 Eosinophils % (0 - 5 %) 0.1 Basophils % (0.0 - 2.0 %) 0.1 Absolute Granulocytes (1.4 - 6.5 /CUMM) 9.6 H Absolute Lymphocytes (1.2 - 3.4 /CUMM) 0.7 L Absolute Monocytes (0.10 - 0.60 /CUMM) 0.5 Absolute Eosinophils (0.0 - 0.7 /CUMM) 0 Absolute Basophils (0.0 - 0.2 /CUMM) 0 Assessment/Plan Assessment/Plan A- 81yoF POD2 sp L hip ORIF, back on home eliquis for both afib and postop dvt ppx, stable for discharge with home services from orthopedic standpoint. P- daily dry gauze dressing change prn prn pain meds eliquis bid oob, ambulate, wbat home pt fu with dr rizo in 2 weeks
== END 2017-08-13 14:40 | disposition home health service (06) | DRG 481 ==
LOC: ERH 21:15 → 1NO 22:35 → ERHI 22:35 → EDBEDREQ 08-11 11:19 → EDBEDREQTM 08-11 11:19 → ENRESERV 08-11 11:25 → ENTRNSPT 08-11 12:15 → EDTRNSPTSTS 08-11 12:17 → EDTRNSPT 08-11 12:17 → CMPTRNSPT 08-11 12:45 → 1NO 08-11 13:16 → ENPENDDIS 08-13 13:35 → ENTRNSPT 08-13 14:17 → EDTRNSPT 08-13 14:29 → EDTRNSPTSTS 08-13 14:29 → 1NO 08-13 14:40 → CMPTRNSPT 08-13 14:54
PROVIDERS: Emergency Medicine; Internal Medicine; Student in an Organized Health Care Education/Training Program
PROC: 0QS704Z Reposition Left Upper Femur with Internal Fixation Device, Open Approach (ICD-10-PCS; principal; 2017-08-11)
DX: S72.012A Unspecified intracapsular fracture of left femur, initial encounter for closed fracture (principal); N17.9 Acute kidney failure, unspecified; E87.5 Hyperkalemia; N18.3 Chronic kidney disease, stage 3 (moderate); I48.0 Paroxysmal atrial fibrillation; W01.0XXA Fall on same level from slipping, tripping and stumbling without subsequent striking against object, initial encounter; K58.9 Irritable bowel syndrome, unspecified; Y92.007 Garden or yard of unspecified non-institutional (private) residence as the place of occurrence of the external cause; I12.9 Hypertensive chronic kidney disease with stage 1 through stage 4 chronic kidney disease, or unspecified chronic kidney disease; Z86.73 Personal history of transient ischemic attack (TIA), and cerebral infarction without residual deficits; Z85.42 Personal history of malignant neoplasm of other parts of uterus; Z79.01 Long term (current) use of anticoagulants; Z90.710 Acquired absence of both cervix and uterus; Z85.828 Personal history of other malignant neoplasm of skin
CPT/HCPCS: 1NP; ERO; 36592; 71045; 72170; 73502-LT; 81001; 82436; 87086; 87147; 97110-GO; 97116-GO; 97161-GP; 97530-GO; J0131; J0690; J2405; J3490; J7040; J7042